=== PATIENT | male | born 1980 | race Caucasian/White ===

== ENCOUNTER 2016-12-14 18:01 | Emergency (ER) | payer OTHER ==
[~2016-12-14] VITALS: Ht 177.8 cm; Wt 59.5 kg
[2016-12-14 18:10] VITALS: Ht 177.8 cm; Wt 59.5 kg
--- NOTE | 2016-12-14 19:35 | ERD ---
ER Documentation Chief Complaint Date/Time DATE: 12/14/16 TIME: 19:25 Chief Complaint LEFT GROIN PAIN, LIFTING @ WORK TODAY HPI 36-year-old male who presents emergency department for left-sided groin/ testicular pain after pushing a heavy object at work today at around 10 AM. Denies any headache, dizziness, blurry vision, neck pain, shoulder pain, chest pain, back pain, abdominal pain, nausea, vomiting, dysuria, hematuria, penile discharge, direct trauma, being sexually active, recent travel, direct trauma, falls, injury, recent exposure to any illness, recent antibiotic use in the last 3 months, fever, chills. No known drug allergies. No past medical history. No surgeries. Medication: Not in any prescription medication at this time. 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 Denies smoking, use of alcohol, use of illegal drugs. ROS All systems reviewed and are negative except as per history of present illness. Medications Home Meds Active Scripts Acetaminophen* (Tylophen*) 500 Mg Capsule, 1 CAP PO Q6H Y for PAIN AND OR ELEVATED TEMP, #20 CAP Prov:SAMPSONILABANJASONAR F 12/14/16 Cyclobenzaprine Hcl* (Cyclobenzaprine Hcl*) 10 Mg Tablet, 10 MG PO Q12 Y for PAIN, #20 TAB Prov:SAMPSONILABANJASONAR F 12/14/16 Ibuprofen* (Motrin*) 800 Mg Tab, 800 MG PO Q8 Y for PAIN, #30 TAB Prov:PASILABANJASONAR F 12/14/16 Allergies Allergies: Coded Allergies: No Known Allergy (Unverified , 12/14/16) PMhx/Soc Medical and Surgical Hx: pt denies Medical Hx, pt denies Surgical Hx Hx Alcohol Use: No Hx Substance Use: No Hx Tobacco Use: No Smoking Status: Never smoker Physical Exam Vitals Vital Signs Date Time Temp Pulse Resp B/P Pulse Ox O2 Delivery O2 Flow Rate FiO2 12/14/16 22:07 72 18 132/66 99 Room Air 12/14/16 18:10 98.0 73 18 145/80 97 Physical Exam Const: [] Head: Atraumatic Eyes: Normal Conjunctiva ENT: Normal External Ears, Nose and Mouth. Neck: Full range of motion..~ No meningismus. Resp: Clear to auscultation bilaterally Cardio: Regular rate and rhythm, no murmurs Abd: Soft, non tender, non distended. Normal bowel sounds. There is no abdominal tenderness and light and deep palpation. : Penile area/urethral opening is no discharge and no bleeding. Has equal distribution of air on this pubic area. Bilateral testicles/scrotal area has no swelling/discoloration and has no tenderness. Right inguinal area has no swelling and no tenderness. Left inguinal areas no swelling and tenderness. Skin: No petechiae or rashes Back: No midline or flank tenderness. No CVA tenderness. Ext: No cyanosis, or edema. No calf tenderness. Neur: Awake and alert Psych: Normal Mood and Affect Results 24 hrs Laboratory Tests Test 12/14/16 19:37 Urine Color YELLOW Urine Clarity CLEAR Urine pH 6.0 Urine Specific Te[place]ro 1.026 Urine Ketones NEGATIVEmg/dL Urine Nitrite NEGATIVEmg/dL Urine Bilirubin NEGATIVEmg/dL Urine Urobilinogen 2+mg/dL Urine Leukocyte Esterase NEGATIVELeu/ul Urine Hemoglobin NEGATIVEmg/dL Urine Glucose NEGATIVEmg/dL Urine Total Protein NEGATIVEmg/dl Procedures/MDM Examination: Please see physical examination. Disease process, medical treatment was explained to the patient and family member. They verbalized understanding and agreed with the diagnostic tests, medical treatment, and follow-up care. Radiology: Testicular ultrasound IMPRESSION: 1. Unremarkable scrotal ultrasound. 2. No sonographic abnormality in the left inguinal region. Urinalysis: Negative. Treatment: Toradol IM. Re-evaluation: Denies headache, dizziness, blurred vision, neck pain, shoulder pain, chest pain, back pain, abdominal pain, testicular pain, pain in the penis , back pain, groin pain, difficulty walking, nausea, vomiting. There is no right upper/right lower/epigastric/left upper/left lower abdominal tenderness light and deep palpation. Able to jump 5 times without developing abdominal pain. Negative on Rovsing sign. Negative Marizol sign. Negative and psoas sign. Ambulatory with steady gait and without difficulty. No neurovascular deficit no neurological deficits. Consultation: None. Differential diagnosis: Testicular torsion versus epididymitis versus orchitis versus epididymal cyst Medical decision making: Discharge with a final diagnosis of lower extremity pain/scrotal pain. Medications prescribed are the following: Tylenol. Motrin. Flexeril. Patient and family member are made aware of the side effects and adverse reactions of the medications prescribed. Instructed on when to seek emergent and medical attention in case allergic/anaphylactic reactions or severe side effects and or adverse reactions to medications. Patient and family member verbalized understanding. Patient instructed Instructed to follow-up with his PCP in 24-48 hours. Instructed to Call 911 for chest pain, shortness of breath. Advised to come back here in ED as soon as possible for severity of symptoms which includes but not limited to: any new symptoms; shortness of breath/difficulty of breathing; cardiovascular changes; severe gastrointestinal symptoms; signs and symptoms of bleeding and or infection; signs of compartment syndrome/neurovascular changes; neurological changes/deficits. Patient and family member verbalized understanding. Upon discharge, patient is alert and oriented x 4, speaks full and clear sentences, denies pain, has no neurological deficits, has no neurovascular deficits, difficulty of breathing. Breathing even and unlabored. Lung sounds are clear to auscultation. Not in distress. Appears comfortable. Ambulatory with steady gait. Appears satisfied with care provided here in ED. Departure Diagnosis: Primary Impression: Lower extremity pain Additional Impression: Scrotal pain Condition: Stable Additional Instructions: Instructed to follow-up with his PCP in 24-48 hours. Instructed to Call 911 for chest pain, shortness of breath. Advised to come back here in ED as soon as possible for severity of symptoms which includes but not limited to: any new symptoms; shortness of breath/difficulty of breathing; cardiovascular changes; severe gastrointestinal symptoms; signs and symptoms of bleeding and or infection; signs of compartment syndrome/neurovascular changes; neurological changes/deficits. Patient and family member verbalized understanding. ANDREEA MATTA Dec 14, 2016 19:35
[2016-12-14 20:09] LABS: ADD UMIC NO; UR ASCORBIC ACID NEGATIVE (NEGATIVE); UR BILIRUBIN (Dip) NEGATIVE (NEGATIVE); UR BLOOD (Dip) NEGATIVE (NEGATIVE); UR CLARITY CLEAR (CLEAR); UR COLOR YELLOW (YELLOW); UR GLUCOSE (Dip) NEGATIVE (NEGATIVE); UR KETONES (Dip) NEGATIVE (NEGATIVE); UR LEUKOCYTE ESTERASE (Dip) NEGATIVE Leu/ul (NEGATIVE); UR NITRITE (Dip) NEGATIVE (NEGATIVE); UR SPECIFIC GRAVITY (Dip) 1.026 (1.003-1.030); UR TOTAL PROTEIN (Dip) NEGATIVE (NEGATIVE); UR UROBILINOGEN (Dip) 2+ mg/dL (NEGATIVE)
--- NOTE | 2016-12-14 21:07 | RADRPT ---
PROCEDURE: Scrotal ultrasound CLINICAL INDICATION: Left testicular pain. TECHNIQUE: Reed scale and color Doppler imaging of the scrotum was performed. COMPARISON: None available FINDINGS: Right testicle: 4.1 x 2.0 x 2.4 cm. Normal size and echogenicity. Normal flow. Right epididymis: Unremarkable. Left testicle: 3.4 x 2.1 x 2.7 cm. Normal size and echogenicity. Normal flow. Left epididymis: Unremarkable. Hydrocele: None. Varicocele: None. Left inguinal region: No sonographic abnormality. IMPRESSION: 1. Unremarkable scrotal ultrasound. 2. No sonographic abnormality in the left inguinal region. RPTAT: HLBP .Ramo Vega MD, Date Time Electronically viewed and signed by .Ramo Vega MD, MD on 12/14/2016 21:07 .P/
[2016-12-14] MEDS ORDERED: IBUP800T25 PO (21:51)
[2016-12-14] MEDS ORDERED: ACET500C5 PO (21:52)
[2016-12-14] MEDS ORDERED: CYCL-319 PO (21:52)
[2016-12-14 22:07] VITALS: BP 132/66; PULSE 72; RESP 18
== END 2016-12-14 22:08 | disposition home or self-care (01) ==
LOC: FTE 18:01
DX: N50.82 Scrotal pain (principal)
CPT/HCPCS: 76870; 81003; Z7502